=== PATIENT | female | born 1980 | race African-American/Black ===

== ENCOUNTER 2019-08-24 18:18 | Emergency (ER) | payer SELFPAY ==
[~2019-08-24] VITALS: Ht 177.8 cm; Wt 117.9 kg
--- NOTE | 2019-08-24 20:04 | Emergency Department Note ---
History of Present Illnes History of Present Illness Chief Complaint: General Medicine Complaints History of Present Illness This is a 38 year old female who present for management of her chronic pain, associated with her diagnosis of Fibromyalgia. Pt states that she moved here from [place], and she has not yet applied for [place] Medicaid, which is the zapata step in her being able to follow-up and establish care with a PCP. She states that she was previously treated with Gabapentin 600 mg bid, but she has been off of this for possibly 4 months. She states that "she hurts all over." Pt states that she "passed out on Friday," after becoming light-headed and dizzy. She states that she was seen at the ER at [place], and had a negative CT brain. She denies current symptoms associated with this incident. She denies any known COVID 19 exposures. 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 Institutional Nutrition Consultant Required: No Onset (how long ago): month(s) Location: "all over her body" Quality: sore, aching, sharp and stabbing pain Radiation: non-radiation Severity: moderate Onset quality: gradual Duration (how long): month(s) Timing of current episode: constant Progression: worsening Chronicity: chronic Context: recent illness, recent surgery, recent travel, trauma/injury, new medications; other Relieving factors: none Exacerbating factors: none Associated symptoms: denies other symptoms Treatments prior to arrival: none Past Medical/Family History Physician Review I have reviewed the patient's past medical and family history. Any updates have been documented here. Past Medical History Recent Fever: No Clinical Suspicion of Infectio: No New/Unexplained Change in Ment: No Past Medical History: Hypertension, Asthma, GERD, Hyperlipedemia Other Medical History: Fibromyalgia Other Surgery: Tonsillectomy x 1 Social History Smoking Cessation: Current every day smoker (04/10 ppd) Alcohol Use: Occasional Any Illegal Drug Use: Yes (cocaine 2 weeks ago) TB Exposure/Symptoms: No Physically hurt or threatened: No Family History Family history of heart diseas: No Other Any Pre-Existing Lines (PICC,: No Is patient up to date on immun: Yes Review of Systems Review of Systems Constitutional: no symptoms EENTM: no symptoms Cardiovascular: no symptoms Respiratory: no symptoms Gastrointestinal: no symptoms Genitourinary: no symptoms Musculoskeletal: muscle pain, muscle stiffness Neurological: no symptoms Psychological: no symptoms Endocrine: no symptoms Hematological/Lymphatic: no symptoms Review of other systems All other systems reviewed and negative. Physical Exam Related Data Allergies: Coded Allergies: latex (Verified Allergy, Intermediate, 08/24/19) morphine (Verified Allergy, Intermediate, 08/24/19) povidone-iodine (Verified Allergy, Intermediate, 08/24/19) soap (Verified Allergy, Intermediate, 08/24/19) Vital signs reviewed: Yes Physical Exam CONSTITUTIONAL Constitutional: well-developed, well-nourished, obese HENT HENT: normocephalic, atraumatic, oropharynx clear/moist, nose normal HENT L/R: left ext ear normal, right ext ear normal EYES Eyes: PERRL, conjunctivae normal NECK Neck: ROM normal PULMONARY Pulmonary: effort normal, breath sounds normal CARDIOVASCULAR Cardiovascular: regular rhythm, heart sounds normal, capillary refill normal, normal rate GASTROINTESTINAL Abdominal: soft, nontender, bowel sounds normal GENITOURINARY Genitourinary: exam deferred SKIN Skin: warm, dry MUSCULOSKELETAL Musculoskeletal: tenderness, other (Pt with diffuse, generalized muscle pain, even to light touch. No erythema, warmth, swelling or rash. Pt tenses up every minute, or so, during the interview, stating that,"it hurts so much!") NEUROLOGICAL Neurological: alert, oriented x 3, no gross motor or sensory deficits PSYCHOLOGICAL Critical Care Time Subsequent provider I assumed direction of critical care for this patient from another provider of my specialty. Assessment & Plan Assessment & Plan Final Impression: (1) Musculoskeletal pain, chronic (2) Fibromyalgia (3) Hypertension (4) Hyperlipidemia Assessment & Plan - Will resume patient's Gabapentin. Explained that she MUST f/u with a PCP, or pain management, and to titrate the dosage of Gabapentin - Pt was provided with some community resources, to try and give her some guidance on applying for these resources - Explained to the patient that the ED is not the best place to seek management of chronic problems. Pt voiced understanding of the plan. Depart Disposition: HOME, SELF-half-way Meds Active Scripts Gabapentin (GABAPENTIN) 100 Mg Capsule, 1 TAB PO BID for chronic pain, #60 TAB 0 Refills Prov:EDEN WEBSTER MD 08/24/19 EDEN WEBSTER MD August 24, 2019 20:04
[2019-08-24] MEDS ORDERED: GABAPENTIN100 MG PO (20:39)
[2019-08-24 21:11] VITALS: BP 132/89
== END 2019-08-24 21:18 | disposition home or self-care (01) ==
LOC: FSED 18:18 → EDBD 18:18 → FSED 21:18
DX: M79.7 Fibromyalgia (principal); I10 Essential (primary) hypertension; E78.5 Hyperlipidemia, unspecified; G89.29 Other chronic pain
CPT/HCPCS: 99282